=== PATIENT | male | born 1935 | race Caucasian/White ===

== ENCOUNTER → 2022-11-30 | Outpatient (CLI) | payer MEDICARE, OTHER ==
[~2022-11-30] MED LIST: ACET-2247 PO; FERR324T4 PO; FURO20TA6 PO; GEMF600T89 PO; METO25 PO; MVIT PO; OMEP40CA PO; TAMS0.4C32 PO; TRAZ-185 PO; UBID10CA6 PO
== END | disposition home or self-care (01) ==
LOC: RAH 11:07
PROVIDERS: ATTEND Urology
DX: M25.552 Pain in left hip (principal)
CPT/HCPCS: 73502